=== PATIENT | female | born 1955 | race Caucasian/White ===

== ENCOUNTER 2023-04-14 08:02 | Outpatient (RCR) | payer MEDICARE, BC | END 2023-04-30 11:58 | disposition home or self-care (01) | LOC: OPPGERO 08:02 | DX: F43.21 Adjustment disorder with depressed mood (principal) ==

== ENCOUNTER 2023-05-01 12:48 | Outpatient (RCR) | payer MEDICARE, BC | END 2023-05-29 15:04 | LOC: OPPGERO 12:48 | DX: F43.21 Adjustment disorder with depressed mood (principal) ==

== ENCOUNTER 2023-07-02 09:00 | Outpatient (RCR) | payer MEDICARE, BC | END 2023-07-30 09:50 | disposition home or self-care (01) | LOC: OPPGERO 09:00 | DX: F43.21 Adjustment disorder with depressed mood (principal) ==